=== PATIENT | female | born 1945 | race Hispanic/Latino ===

== ENCOUNTER 2017-03-22 16:45 | Inpatient (IN) | payer MEDICARE, OTHER ==
--- NOTE | 2017-03-22 17:28 | ED PDOC ---
Arrival/HPI - General Chief Complaint: Lower Extremity Problem/Injury Time Seen by Provider: 03/22/17 17:20 - History of Present Illness Narrative History of Present Illness (Text): 72 y/o F c PMHx DM p/w L calf swelling x 1 day. Patient was in PMD's office, was sent to US which was positive. Denies fever, chills, chest pain. She does report shortness of breath but states she always has it and denies any new shortness of breath. 20 pack year history. Past Medical History - Cardiac Hx Cardiac Disorders: Yes Hx Heart Murmur: Yes Hx Pacemaker: No - Pulmonary Hx Respiratory Disorders: No - Neurological Hx Neurological Disorder: No Hx Paralysis: No - HEENT Hx HEENT Disorder: No - Renal Hx Renal Disorder: No - Endocrine/Metabolic Hx Endocrine Disorders: Yes Hx Diabetes Mellitus Type 2: Yes - Hematological/Oncological Hx Blood Disorders: No Hx Blood Transfusions: No Hx Blood Transfusion Reaction: No - Integumentary Hx Dermatological Disorder: No - Musculoskeletal/Rheumatological Hx Musculoskeletal Disorders: Yes (TEAR L SHOULDER ROTATOR CUFF) Hx Arthritis: Yes Hx Falls: Yes Other/Comment: Left knee - Gastrointestinal Hx Gastrointestinal Disorders: No - Genitourinary/Gynecological Hx Genitourinary Disorders: No - Psychiatric Hx Psychophysiologic Disorder: No Hx Emotional Abuse: No Hx Physical Abuse: No Hx Substance Use: No - Surgical History Hx Cholecystectomy: Yes - Anesthesia Hx Anesthesia Reactions: No Hx Malignant Hyperthermia: No - Suicidal Assessment Feels Threatened In Home Enviroment: No Family/Social History Family/Social History: No Known Family HX Smoking Status: Heavy Smoker > 10 Cigarettes Daily Hx Alcohol Use: No Hx Substance Use: No Allergies/Home Meds Allergies/Adverse Reactions: Allergies No Known Allergies Allergy (Verified 03/22/17 17:02) Home Medications: Home Meds Medication Instructions Recorded Confirmed Aspirin [Aspir 81] 81 mg PO DAILY 04/25/12 03/22/17 Metformin HCl [Metformin] 1,000 mg PO BID 04/25/12 03/22/17 GlipiZIDE [Glucotrol] 10 mg PO BID 03/22/17 03/22/17 Lovastatin [Lovastatin] 40 mg PO QPM 03/22/17 03/22/17 Metoprolol Succinate [Toprol XL] 50 mg PO DAILY 01/24/18 01/24/18 Naproxen [Naproxen] 500 mg PO PRN PRN 03/22/17 03/22/17 Review of Systems - Physician Review All systems were reviewed & negative as marked: Yes - Review of Systems Constitutional: absent: Fevers Cardiovascular: absent: Chest Pain Physical Exam - Physical Exam Narrative Physical Exam (Text): Gen: NAD Head: NC/AT Eyes: PERRL ENT: MMM Neck: Supple Chest: Nontender CV: Tachycardic. Lungs: CTA b/l Abd: Soft, NT Back: No midline tenderness Extremities: L calf swollen Neuro: Alert, no focal deficit Vital Signs Temp Pulse Resp BP Pulse Ox 03/22/17 17:03 98.0 F 126 H 19 118/68 94 L Medical Decision Making ED Course and Treatment: Positive outpatient US for L DVT. Start anticoagulation. 03/22/17 18:[address] Flores accepts patient to his service. - Lab Interpretations Lab Results: 03/22/17 17:13 03/22/17 17:13 Lab Results 03/22/17 17:13: Sodium 136, Potassium 4.6, Chloride 101, Carbon Dioxide 23, Anion Gap 16, BUN 15, Creatinine 0.8, Est GFR ( Amer) > 60, Est GFR (Non- Af Amer) > 60, Random Glucose 228 H, Calcium 10.1, Total Bilirubin 0.8, AST 28, ALT 29, Alkaline Phosphatase 91, Total Protein 7.2, Albumin 3.9, Globulin 3.4, Albumin/Globulin Ratio 1.2 03/22/17 17:13: PT 12.2, INR 1.07, APTT 25.9 03/22/17 17:13: WBC 14.9 H D, RBC 4.50, Hgb 14.2, Hct 42.4, MCV 94.2, MCH 31.6, MCHC 33.5, RDW 12.8, Plt Count 367, MPV 10.7, Gran % 83.3 H, Lymph % (Auto) 10.4 L, [place] % (Auto) 4.6, Eos % (Auto) 1.4 L, Baso % (Auto) 0.3, Gran # 12.41 H , Lymph # 1.6, [place] # 0.7 H, Eos # 0.2, Baso # 0.04 - RAD Interpretation Radiology Orders: 03/22/17 17:28 CHEST PORTABLE [RAD] Stat - Medication Orders Current Medication Orders: Heparin Sodium/Sodium Chloride (Heparin 36725 Units/250ml 1/2 Normal Saline) 25 ,000 units in 250 mls @ 16.848 mls/hr IV .[id number] PRN; Protocol; 18 UNITS/KG/HR PRN Reason: ADJUST RATE PER PROTOCOL Discontinued Medications Heparin Sodium (Porcine) (Heparin) 7,500 units 80 units/kg (7500 units) IV ONCE ONE PRN Reason: Protocol Stop: 03/22/17 18:35 Disposition/Present on Arrival - Present on Arrival Any Indicators Present on Arrival: No History of DVT/PE: No History of Uncontrolled Diabetes: No Urinary Catheter: No History of Decub. Ulcer: No History Surgical Site Infection Following: None - Disposition Have Diagnosis and Disposition been Completed?: Yes Diagnosis: DVT (deep venous thrombosis) Disposition: HOSPITALIZED Disposition Time: 18:10 Patient Plan: Admission Condition: FAIR Forms: TLabs (Ivorian)
[2017-03-22 17:47] LABS: BASO # 0.04 K/mm3 (0.0-2.0); BASO % 0.3 % (0.0-3.0); EOS # 0.2 (0.0-0.7); EOS % 1.4 % (1.5-5.0); GRAN # 12.41 (1.4-6.5); GRAN % 83.3 % (50.0-68.0); HEMOGLOBIN 14.2 g/dL (12.0-16.0); LYMPH # 1.6 (1.2-3.4); LYMPH % 10.4 % (22.0-35.0); MEAN CELL VOLUME 94.2 fl (80.0-105.0); MEAN CORPUSCULAR HEMOGLOBIN 31.6 pg (25.0-35.0); MEAN CORPUSCULAR HGB CONC 33.5 g/dl (31.0-37.0); MEAN PLATELET VOLUME 10.7 fl (7.0-11.0); MONO # 0.7 (0.1-0.6); MONO % 4.6 % (1.0-6.0); RBC 4.5 10^6/uL (3.5-6.1); RED CELL DISTRIBUTION WIDTH 12.8 % (11.5-14.5); WHITE BLOOD COUNT 14.9 10^3/ul (4.5-11.0)
[2017-03-22 18:15] LABS: INR 1.07 (0.93-1.08); PARTIAL THROMBOPLASTIN TIME 25.9 Seconds (25.1-36.5); PROTHROMBIN TIME 12.2 SECONDS (9.4-12.5)
[2017-03-22 18:17] LABS: ALB/GLOB RATIO 1.2 (1.1-1.8); ALBUMIN 3.9 g/dL (3.0-4.8); ALT/SGPT 29 U/L (7-56); AST/SGOT 28 U/L (14-36); BLOOD UREA NITROGEN 15 mg/dL (7-21); CALCIUM 10.1 mg/dL (8.4-10.5); GFR AFRICAN-AMERICAN > 60; GFR NON-AFRICAN AMERICAN > 60
[2017-03-22] MEDS: Heparin25000 units/250ml 1/2NS 25,000 UNITS/250 ML BAG IV PRN (19:43)
--- NOTE | 2017-03-22 21:28 | CARD ---
APPROVED REPORT EKG Measurement Heart [id number] <Conclusion> Sinus tachycardia with frequent premature ventricular complexes Low voltage QRS Borderline ECG
[2017-03-22 22:25] VITALS: BMI 37.6
[2017-03-22] MEDS ORDERED: Influenza Vaccine 60 mcg/0.5 mL SYR (4YR UP) IM ONE (22:25)
[2017-03-22] MEDS ORDERED: Pneumococcal 23-Valent Vaccine IM ONE (22:25)
[2017-03-23] MEDS: Insulin Reg-LOW-Coverage SC SCH ×2 (00:01→09:41)
[2017-03-23] MEDS ORDERED: Oxycodone/Acetaminophen 5/325 mg Tab PO ONE (00:10)
--- NOTE | 2017-03-23 08:10 | RAD ---
HISTORY: DVT COMPARISON: Chest x-ray performed 03/16/17 TECHNIQUE: Chest, one view. FINDINGS: Examination markedly limited by habitus. LUNGS: Soft tissue attenuation limits evaluation of the lung bases. Left basilar atelectasis/infiltrate cannot be excluded. Please note that chest x-ray has limited sensitivity for the detection of pulmonary masses. PLEURA: No significant pleural effusion identified. No definite pneumothorax . CARDIOVASCULAR: Cardiomegaly. OSSEOUS STRUCTURES: No acute osseous abnormality identified. VISUALIZED UPPER ABDOMEN: Unremarkable. OTHER FINDINGS: None. IMPRESSION: Soft tissue attenuation/habitus markedly limits evaluation particularly of the lung bases. Left basilar atelectasis or infiltrate cannot be excluded. Cardiomegaly.
[2017-03-23 08:33] LABS: HEMOGLOBIN 13.4 g/dL (12.0-16.0); MEAN CELL VOLUME 95.6 fl (80.0-105.0); MEAN CORPUSCULAR HEMOGLOBIN 30.8 pg (25.0-35.0); MEAN CORPUSCULAR HGB CONC 32.2 g/dl (31.0-37.0); MEAN PLATELET VOLUME 10.5 fl (7.0-11.0); RBC 4.35 10^6/uL (3.5-6.1); RED CELL DISTRIBUTION WIDTH 12.9 % (11.5-14.5); WHITE BLOOD COUNT 10.5 10^3/ul (4.5-11.0)
[2017-03-23 08:45] LABS: ALB/GLOB RATIO 1.1 (1.1-1.8); ALBUMIN 3.6 g/dL (3.0-4.8); ALT/SGPT 29 U/L (7-56); AST/SGOT 20 U/L (14-36); BLOOD UREA NITROGEN 13 mg/dL (7-21); CALCIUM 9.7 mg/dL (8.4-10.5); GFR AFRICAN-AMERICAN > 60; GFR NON-AFRICAN AMERICAN > 60
[2017-03-23] MEDS ORDERED: Metoprolol Succinate 50 mg XL Tab PO SCH (10:00)
[2017-03-23] MEDS ORDERED: INSULIN LISPRO 50 UNIT SQ SCH (10:45)
[2017-03-23] MEDS ORDERED: Barium Sulfate Susp 2.1% w/v, 2.0% w/w 450 mL Bottle PO ONE (10:57)
[2017-03-23] MEDS: Sodium Chloride 0.45% 1,000 ML IV SCH ×2 (11:58→21:19)
[2017-03-23] MEDS: Insulin Reg-HIGH-Coverage SC SCH ×3 (11:58→22:00)
--- NOTE | 2017-03-23 13:00 | CP.PCM.CON ---
History of Present Illness - History of Present Illness History of Present Illness: 72 y/o F with PMH of HTN, HLD, and DM presents to the hospital after developing left lower extremity pain and swelling for 3 days. Patient states she went to see her PMD for her symptoms and she received a lower extremity ultrasound which demonstrated a left ileofemoral DVT. Patient was then advised to come to the ED. Patient states she has been mainly been bed bound over the last several weeks due to severe knee pain. Patient was scheduled for knee replacement surgery in the beginning of March, which has since been cancelled. Patient did not take any medication for her symptoms at home. There is no radiation of pain. Denies chest pain, shortness of breath, nausea, vomiting, diarrhea, headache, fever, chills, weakness, palpitations. PMH: HTN, HLD, DM Surgical Hx: Cholecystectomy Family Hx: Noncontributory Social Hx: 1 ppd x 50 years. Social alcohol use. Denies illicit drug use. Allergies: NKDA Medications: Reviewed, as per MAR Review of Systems - Review of Systems Review of Systems: 12 point ROS as per HPI, otherwise negative. Past Patient History - Past Social History Smoking Status: Current Some Days Smoker - CARDIAC Hx Cardiac Disorders: Yes (CAD,HEAR MURMUR) Hx Heart Murmur: Yes Hx Pacemaker: No Hx Peripheral Vascular Disease: Yes (DVT LEFT LEG 03-22-17) - PULMONARY Hx Respiratory Disorders: Yes (SMOKES 1/2 PPD X 40 YRS) - NEUROLOGICAL Hx Neurological Disorder: No - HEENT Hx HEENT Problems: No - RENAL Hx Chronic Kidney Disease: No - ENDOCRINE/METABOLIC Hx Endocrine Disorders: Yes Hx Diabetes Mellitus Type 2: Yes - HEMATOLOGICAL/ONCOLOGICAL Hx Blood Disorders: No - INTEGUMENTARY Hx Dermatological Problems: Yes Other/Comment: DVT LEFT LEG 03-22-17 - MUSCULOSKELETAL/RHEUMATOLOGICAL Hx Musculoskeletal Disorders: Yes ([place] RIGHT ROTATOR CUFF) Hx Falls: Yes - GASTROINTESTINAL Hx Gastrointestinal Disorders: No - GENITOURINARY/GYNECOLOGICAL Hx Genitourinary Disorders: No - PSYCHIATRIC Hx Psychophysiologic Disorder: No Hx Emotional Abuse: No Hx Physical Abuse: No - SURGICAL HISTORY Hx Surgeries: Yes Hx Cholecystectomy: Yes - ANESTHESIA Hx Anesthesia Reactions: No Hx Malignant Hyperthermia: No Meds Allergies/Adverse Reactions: Allergies Allergy/AdvReac Type Severity Reaction Status Date / Time No Known Allergies Allergy Verified 03/22/17 19:19 - Medications Medications: Current Medications Aspirin (Ecotrin) 81 mg PO DAILY [facility] Last Admin: 03/23/17 09:40 Dose: 81 mg Atorvastatin Calcium (Lipitor) 40 mg PO DIN [facility] Heparin Sodium/Sodium Chloride (Heparin 06037 Units/250ml 1/2 Normal Saline) 25 ,000 units in 250 mls @ 16.848 mls/hr IV .[id number] PRN; Protocol; 18 UNITS/KG/HR PRN Reason: ADJUST RATE PER PROTOCOL Last Admin: 03/22/17 19:43 Dose: 18 units/kg/hr, 16.848 mls/hr Sodium Chloride (Sodium Chloride 0.45%) 1,000 mls @ 80 mls/hr IV .[id number] [facility] Stop: 03/24/17 12:00 Last Admin: 03/23/17 11:58 Dose: 80 mls/hr Insulin Human Regular (Humulin R High) 0 units SC ACHS [facility] PRN Reason: Protocol Last Admin: 03/23/17 11:58 Dose: 4 units Non-Formulary Medication (Humalog Kwikpen U-100) 40 units SQ ACD [place] Non-Formulary Medication (Insulin Lispro [Humalog Kwikpen U-100]) 50 units SQ ACB [facility] Zolpidem Tartrate (Ambien) 5 mg PO HS PRN; Protocol PRN Reason: Sleep Physical Exam - Constitutional Appears: Non-toxic, No Acute Distress - Head Exam Head Exam: ATRAUMATIC, NORMAL INSPECTION, NORMOCEPHALIC - Eye Exam Eye Exam: EOMI, Normal appearance - ENT Exam ENT Exam: Mucous Membranes Moist, Normal Exam - Neck Exam Neck exam: Positive for: Normal Inspection. Negative for: Lymphadenopathy - Respiratory Exam Respiratory Exam: Clear to Auscultation Bilateral, NORMAL BREATHING PATTERN. absent: Rales, Rhonchi, Wheezes - Cardiovascular Exam Cardiovascular Exam: RRR, +S1, +S2 - GI/Abdominal Exam GI & Abdominal Exam: Normal Bowel Sounds, Soft. absent: Tenderness - Extremities Exam Extremities exam: Positive for: pedal edema (Left lower extremity +1 edema to the knee). Negative for: calf tenderness - Neurological Exam Neurological exam: Alert, CN II-XII Intact, Oriented x3 - Psychiatric Exam Psychiatric exam: Normal Affect, Normal Mood - Skin Skin Exam: Dry, Erythema (Left lower extremity ), Intact, Warm Results - Vital Signs Recent Vital Signs: Last Vital Signs Temp 97.8 F 03/23/17 08:23 Pulse 96 H 03/23/17 08:23 Resp 20 03/23/17 08:23 BP 135/75 03/23/17 08:23 Pulse Ox 99 03/23/17 08:23 - Labs Result Diagrams: 03/23/17 08:00 03/23/17 08:00 Labs: Laboratory Results - last 24 hr 03/23/17 03/23/17 03/23/17 01:45 08:00 08:00 WBC 10.5 D RBC 4.35 Hgb 13.4 Hct 41.6 MCV 95.6 MCH 30.8 MCHC 32.2 RDW 12.9 Plt Count 339 MPV 10.5 APTT 79.0 H 66.4 H Sodium Potassium Chloride Carbon Dioxide Anion Gap BUN Creatinine Est GFR ( Amer) Est GFR (Non-Af Amer) POC Glucose (mg/dL) Random Glucose Calcium Total Bilirubin AST ALT Alkaline Phosphatase Total Protein Albumin Globulin Albumin/Globulin Ratio 03/23/17 03/23/17 03/23/17 08:00 08:17 11:35 WBC RBC Hgb Hct MCV MCH MCHC RDW Plt Count MPV APTT Sodium 138 Potassium 4.0 Chloride 102 Carbon Dioxide 26 Anion Gap 14 BUN 13 Creatinine 0.8 Est GFR ( Amer) > 60 Est GFR (Non-Af Amer) > 60 POC Glucose (mg/dL) 153 H 206 H Random Glucose 160 H Calcium 9.7 Total Bilirubin 0.8 AST 20 ALT 29 Alkaline Phosphatase 89 Total Protein 7.0 Albumin 3.6 Globulin 3.3 Albumin/Globulin Ratio 1.1 Assessment & Plan - Assessment and Plan (Free Text) Plan: 72 y/o F with PMH of HTN, HLD, and DM presents with left ileofemoral DVT. Patient is currently on heparin drip for her DVT. Patient will remain on heparin for the next 24 hours before bridging to oral anticoagulation due to the proximity of the DVT. Patient will have hypercoaguable workup done in the mean time, although DVT is likely secondary to immobility of the patient. Patient will have CTA of the chest/abdomen/pelvis to further evaluate extent of the clot. Patient is also currently being followed by interventional radiology. Will continue with current medical regimen. Plan discussed with Dr. Taylor. Cindi, PGY-2
--- NOTE | 2017-03-23 13:23 | CON ---
DATE: 03/23/2017 TIME SEEN: 11:00 a.m. CHIEF COMPLAINT/HISTORY OF PRESENT ILLNESS: This is a 72-year-old female who was admitted yesterday with an extensive left iliofemoral DVT. She states that her leg swelling and pain began approximately 3 days prior to admission. She denies any precipitating events. She has no history of venous thromboembolic events. She has no family history for venous thrombosis. She describes some shortness of breath, but has a significant smoking history and COPD. She has no history of malignancy. She denies any fever, sweats, or chills. PAST MEDICAL HISTORY: Significant for smoking. She continues to smoke. She had a screening lung CT in January which was unremarkable. As mentioned previously, she has no history of malignancy. PHYSICAL EXAMINATION: EXTREMITIES: Her left thigh and calf are significantly swollen. She is somewhat tender to touch. Her toes are well perfused. DIAGNOSTIC DATA: Her Duplex ultrasound demonstrates a left acute iliofemoral DVT. The thrombus extends into the left iliac vein and IVC is not visualized. IMPRESSION AND PLAN: I spoke with Dr. Flores. We will obtain a CTA of the pulmonary arteries followed by a CT scan of the abdomen and pelvis to evaluate the venous structures and rule out malignancy. Initially, she will be treated with anticoagulation and compression stockings. She should sit in the chair and ambulate as much as possible. If her swelling and discomfort does not improve with conservative therapy, she will be reevaluated in the next 1 to 2 weeks for catheter-directed thrombolysis. João Moore MD MTDD
[2017-03-23] MEDS: Heparin25000 units/250ml 1/2NS 25,000 UNITS/250 ML BAG IV PRN (13:31)
--- NOTE | 2017-03-23 15:48 | CT ---
PROCEDURE: CT Angiography Chest, Abdomen and Pelvis with and without intravenous contrast HISTORY: DVT. Eval IVC iliac vein. ro malignancy COMPARISON: None. TECHNIQUE: Contiguous axial images of the chest, abdomen and pelvis were obtained in the phase of aortic enhancement. A noncontrast enhanced CT of the chest was also obtained to evaluate for possible intramural thrombus. Coronal and sagittal reformats were generated. IV dose administered: 150 mL Omnipaque 350 Radiation dose: Total exam DLP = 1544.8 by mGy-cm. This CT exam was performed using one or more of the following dose reduction techniques: Automated exposure control, adjustment of the mA and/or kV according to patient size, and/or use of iterative reconstruction technique. FINDINGS: CT ANGIOGRAPHY OF THE CHEST WITH & WITHOUT CONTRAST: PULMONARY ARTERIES:: There a large occlusive filling defect in the distal right main pulmonary artery and filling defects in the upper, middle and lower lobe pulmonary artery branches. There are no central filling defects in the main and left pulmonary artery or branches. There are small eccentric filling defects in at least two left lower lobe distal branches. AORTA (CHEST AND ABDOMEN): The thoracic and abdominal aorta are unremarkable, without aneurysm, dissection or rupture. No intramural thrombus identified in the thoracic aorta on the non-contrast ct of the chest. There is mild dilatation of the ascending aorta which measures 4.0 x 3.7 cm. There are atherosclerotic aortoiliac calcifications. The celiac axis, superior mesenteric artery, inferior mesenteric artery and the renal arteries are widely patent. The pelvic arteries are unremarkable. LUNGS: The lungs are well inflated. There is a 2 mm calcified nodule in the peripheral anterior segment of the right upper lobe. There is mild diffuse centrilobular emphysema. There is no focal consolidation, mass or suspicious nodule. The airways are patent. MEDIASTINUM: The heart is normal in size. No pericardial effusion. No pathologic mediastinal or hilar lymphadenopathy. PLEURA: No pleural effusion or pneumothorax. BONES: Multilevel degenerative changes in the lower thoracic diffuse bone demineralization. OTHER FINDINGS: None. CT ANGIOGRAPHY OF THE ABDOMEN AND PELVIS WITH CONTRAST: LIVER: Normal in size. No gross lesion or ductal dilatation. GALLBLADDER AND BILE DUCTS: Surgically absent. PANCREAS: Mild diffuse atrophy. No gross lesion or ductal dilatation. SPLEEN: Normal in size and appearance. ADRENALS: There is a 3.3 cm adenoma in the right adrenal gland. The left adrenal gland is normal. KIDNEYS AND URETERS: Normal in size with homogeneous enhancement. The right kidney is malrotated. There is a simple cortical cyst in the right kidney. No hydronephrosis. No solid mass. STOMACH AND BOWEL: The small bowel loops are normal in caliber. No bowel dilatation or obstruction. There is colonic diverticulosis without CT evidence for acute diverticulitis APPENDIX: Normal appendix. PERITONEUM: No free fluid. No free air. LYMPH NODES: No enlarged lymph nodes. BLADDER: Normal in appearance. REPRODUCTIVE: The uterus is normal in size . There is a 2.9 cm simple cyst in the right ovary BONES: There are advanced multilevel degenerative changes. Diffuse bone demineralization. No acute fracture OTHER FINDINGS: There is subcutaneous fat stranding and abnormal soft tissue in the left gluteal region which may represent subcutaneous edema or cellulitis. There is an occlusive thrombus and distension of the left external right iliac vein. IMPRESSION: 1. Acute pulmonary embolism involving the distal right pulmonary artery, upper and middle and lower lobe branches. 2. Chronic pulmonary embolism in at least two distal branches of the left lower lobe pulmonary artery. 3. 3.3 cm right adrenal adenoma. 4. Colonic diverticulosis without CT evidence for acute diverticulitis. 5. Occlusive thrombus and distention of the left external right iliac vein. 6. 2.9 cm simple cyst in the right ovary. Given postmenopausal status, follow-up pelvic ultrasound is recommended to assess stability. Important findings were discussed with nurse Jenifer Gonzalez on 03/23/2017 at 3:30 p.m.
[2017-03-23] MEDS ORDERED: INSULIN LISPRO SQ SCH ×2 (16:30)
--- NOTE | 2017-03-23 23:18 | HP ---
HISTORY OF PRESENT ILLNESS: This is a 72-year-old female who has come in to the hospital because of left leg swelling. The patient was seen by Dr. Almanzar, her primary care doctor and was sent to the ER for further evaluation. She says the swelling developed about three days ago. She had an ultrasound in the emergency room and was found to have a left iliofemoral DVT. She was admitted to the hospital for further evaluation. She says that she has been having left-sided knee pain and was scheduled for procedure by her orthopedic doctor. The patient says that she has no shortness of breath. She has no chest pain. No weakness of the arms or the legs. No abdominal pain. No back pain. No dysuria, frequency, or nocturia. She denies any recent trips or long travel. The patient denies using contraceptives. PAST MEDICAL HISTORY: Dyslipidemia, diabetes type 2, and hypertension. PAST SURGICAL HISTORY: She had a cholecystectomy. SOCIAL HISTORY: She does have an extensive smoking history. She has been smoking for about 50 years and smokes about a pack a day. She drinks socially. She denies drug use. REVIEW OF SYSTEMS: All other review of symptoms are within normal limits except as mentioned. ALLERGIES: NO KNOWN DRUG ALLERGIES. HOME MEDICATIONS: Has been reviewed on the [facility]. PHYSICAL EXAMINATION: VITAL SIGNS: Temperature is 97.8, pulse of 96, blood pressure 135/75, respirations 20, and O2 saturation is 99%. Height is 5 feet 2 inches, weight is 260 pounds, and BMI of 37.7. GENERAL: The patient lying in bed, uncomfortable, and in no acute distress. HEENT: Atraumatic and normocephalic. Anicteric sclerae. Moist mucosa. [place] conjunctivae. No oral lesions. NECK: No JVD, anterior and posterior adenopathy, thyromegaly, or bruits. CARDIOVASCULAR: S1 and S2 regular. No murmur, rubs, or gallop. LUNGS: Clear to auscultation bilaterally. No wheezes, rales, or rhonchi. ABDOMEN: Bowel sounds are positive. Soft, nontender and nondistended. No hepatosplenomegaly. No rebound and no guarding EXTREMITIES: No cyanosis, clubbing, or edema. Left leg has 1+ edema that goes up to the knees. NEUROLOGIC: No facial asymmetry. Tongue is midline. No uvula deviation. Power is 5/5 upper extremity and lower extremity. Sensation intact in upper extremity and lower extremity. PSYCHIATRIC: She is awake, alert and oriented x3. No anxiety or depression. She has normal affect. GENITOURINARY: No CVA tenderness. VASCULAR: 2+ pulses in the carotid pulses and pedal pulses. SKIN: No erythema or nodules. SPINE: Shows normal curvature. LABORATORY DATA: White count 14.9, hemoglobin is 14.2, and platelet count is 367,000. The patient's INR is 1.07. Chemistries show sodium is 136, potassium is 4.6, creatinine is 0.8, alkaline phosphatase is 91, calcium is 10.1. DIAGNOSTIC DATA: Chest x-ray done shows soft tissue attenuation, left basal atelectasis and infiltrate. EKG shows sinus tachycardia with frequent PVCs, low-voltage QRS. A CT of the chest done, abdomen and pelvis, the preliminary result looks like the patient has a PE on chest CT. ASSESSMENT: 1. Left iliofemoral deep vein thrombosis. 2. Diabetes type 2. 3. Obesity with a body mass index of 37. 4. Hypertension. 5. Dyslipidemia. 6. Smoking. PLAN: The patient is admitted to the hospital with left leg swelling. She has edema that goes to her knees. She has an ultrasound that shows DVT. A CT shows pulmonary embolism. The patient was seen by Dr. João Moore. I did speak with him. She is also going to be seen by Dr. Taylor. She will need further evaluation. The patient may need intervention for her DVT because it is so extensive. I have placed the patient on heparin. She is going to get stockings. We will see if she improves, otherwise she may need TPA. The patient is then going to be placed on lisinopril for her hypertension. She is on Lipitor for dyslipidemia. The patient is going to be on Ambien for her sleep. She is going to continue with heparin. I will hold her metformin because of the contrast that she received with the CT. We will continue to follow closely. Rosales Flores MD
[2017-03-24 03:09] LABS: URINE BILIRUBIN NEGATIVE (NEGATIVE); URINE BLOOD NEGATIVE (NEGATIVE); URINE GLUCOSE (UA) NEGATIVE (NEGATIVE); URINE LEUKOCYTE ESTERASE SMALL Leu/uL (NEGATIVE); URINE NITRATE POSITIVE (NEGATIVE); URINE PROTEIN NEGATIVE mg/dL (<30 mg/dL); URINE UROBILINOGEN 0.2 E.U./dL (<1 E.U./dL)
[2017-03-24 03:10] LABS: URINE APPEARANCE CLEAR (CLEAR); URINE COLOR YELLOW (YELLOW)
[2017-03-24 03:17] LABS: URINE BACTERIA MANY (NEG); URINE EPITHELIAL CELLS 0 - 2 /hpf (0-5); URINE RBC 0 - 2 /hpf (0-2)
[2017-03-24 07:25] LABS: BASO # 0.06 K/mm3 (0.0-2.0); BASO % 0.7 % (0.0-3.0); EOS # 0.4 (0.0-0.7); EOS % 4.7 % (1.5-5.0); GRAN # 5.21 (1.4-6.5); GRAN % 57.1 % (50.0-68.0); HEMOGLOBIN 12.5 g/dL (12.0-16.0); LYMPH # 2.6 (1.2-3.4); MEAN CELL VOLUME 95.6 fl (80.0-105.0); MEAN CORPUSCULAR HEMOGLOBIN 30.5 pg (25.0-35.0); MEAN CORPUSCULAR HGB CONC 31.9 g/dl (31.0-37.0); MEAN PLATELET VOLUME 10.8 fl (7.0-11.0); MONO # 0.8 (0.1-0.6); MONO % 8.5 % (1.0-6.0); RBC 4.1 10^6/uL (3.5-6.1); RED CELL DISTRIBUTION WIDTH 12.8 % (11.5-14.5); WHITE BLOOD COUNT 9.1 10^3/ul (4.5-11.0)
[2017-03-24] MEDS ORDERED: INSULIN LISPRO 50 UNIT SQ SCH (07:30)
--- NOTE | 2017-03-24 07:48 | PN ---
DATE: 03/24/2017 SUBJECTIVE: The patient has no complaints of any chest pain. No shortness of breath. She has no headaches. PHYSICAL EXAMINATION: VITAL SIGNS: Temperature is 98.7, pulse of 84, blood pressure is 116/60, and respirations are 18. GENERAL: The patient is lying in bed, flat, comfortable. HEENT: No oral lesion. Anicteric sclerae. Moist mucosa. NECK: No JVD, adenopathy, or thyromegaly. CARDIOVASCULAR: S1 and S2, regular. No murmurs, rubs, or gallops. LUNGS: Clear to auscultation bilaterally. No wheeze, rales, or rhonchi. ABDOMEN: Bowel sounds are positive, soft, nontender and nondistended. EXTREMITIES: No cyanosis, clubbing or edema. DIAGNOSTIC DATA: CT of the chest, abdomen and pelvis. She has acute pulmonary embolism with distal right pulmonary artery upper and middle lobe branches, there is a 3.3 cm right adrenal adenoma. There is a occlusive thrombus and distention of the left external right iliac vein. A 2.9 cm cyst in the right ovary. LABORATORY DATA: White count is 10.5, hemoglobin is 13.4 and creatinine is 0.8. ASSESSMENT: 1. Pulmonary embolism. 2. Left iliofemoral deep vein thrombosis. 3. Right adrenal adenoma 3.3 cm. 4. Occlusive thrombus in the left external right iliac vein. 5. Diabetes type 2. 6. Obesity with a body mass index of 37. 7. Hypertension. 8. Dyslipidemia. 9. Smoking. PLAN: The patient is currently on anticoagulation. The patient is receiving aspirin. She is on Lipitor for dyslipidemia. The patient is receiving Tylenol. She is on Zestril for her hypertension. She is receiving IV fluids. She is going to get physical therapy. She will need to continue anticoagulation. Will need to get physical therapy. I will see if she is able to go to Transitional Care Unit. We will speak to Dr. João Moore regarding TPA for this DVT and in consultation with the patient's primary doctor, Dr. Almanzar and Dr. João Moore. We will wait until to see if she makes an improvement with conservative management. I did speak to Dr. João Moore regarding the case. Rosales Flores MD [facility] # [id number]
[2017-03-24 08:05] LABS: ALB/GLOB RATIO 1.2 (1.1-1.8); ALBUMIN 3.3 g/dL (3.0-4.8); ALT/SGPT 21 U/L (7-56); AST/SGOT 17 U/L (14-36); BLOOD UREA NITROGEN 10 mg/dL (7-21); CALCIUM 9.7 mg/dL (8.4-10.5); GFR AFRICAN-AMERICAN > 60; GFR NON-AFRICAN AMERICAN > 60
[2017-03-24] MEDS: Insulin Reg-HIGH-Coverage SC SCH ×3 (09:51→17:09)
[2017-03-24] MEDS: Heparin25000 units/250ml 1/2NS 25,000 UNITS/250 ML BAG IV PRN (10:41)
--- NOTE | 2017-03-24 13:15 | CP.PCM.PN ---
Subjective - Date & Time of Evaluation Date of Evaluation: 03/24/17 Time of Evaluation: 13:09 - Subjective Subjective: Patient seen and examined at bedside. Patient states she has left leg discomfort and pain. She is now wearing a stocking on her left leg. Denies chest pain, shortness of breath, nausea, vomiting, diarrhea, fever, headache. Objective - Vital Signs/Intake and Output Vital Signs (last 24 hours): Temp Pulse Resp BP Pulse Ox 98.5 F 84 20 123/72 95 03/24/17 06:00 03/24/17 09:52 03/24/17 06:00 03/24/17 09:52 03/24/17 06:00 Intake and Output: 03/24/17 03/24/17 06:59 18:59 Intake Total 1920 Output Total 900 Balance 1020 - Medications Medications: Current Medications Acetaminophen (Tylenol 325mg Tab) 650 mg PO Q4H PRN PRN Reason: Pain, moderate (4-7) Last Admin: 03/24/17 06:27 Dose: 650 mg Aspirin (Ecotrin) 81 mg PO DAILY [facility] Last Admin: 03/24/17 09:50 Dose: 81 mg Atorvastatin Calcium (Lipitor) 40 mg PO DIN [facility] Last Admin: 03/23/17 17:15 Dose: 40 mg Heparin Sodium/Sodium Chloride (Heparin 04973 Units/250ml 1/2 Normal Saline) 25 ,000 units in 250 mls @ 16.848 mls/hr IV .[id number] PRN; Protocol; 18 UNITS/KG/HR PRN Reason: ADJUST RATE PER PROTOCOL Last Admin: 03/24/17 10:41 Dose: 18 units/kg/hr, 16.848 mls/hr Insulin Human Regular (Humulin R High) 0 units SC ACHS [facility] PRN Reason: Protocol Last Admin: 03/24/17 11:36 Dose: 4 units Lisinopril (Zestril) 2.5 mg PO DAILY [facility] Last Admin: 03/24/17 09:52 Dose: 2.5 mg Non-Formulary Medication (Humalog Kwikpen U-100) 40 units SQ ACD [facility] Last Admin: 03/23/17 17:14 Dose: Not Given Non-Formulary Medication (Insulin Lispro [Humalog Kwikpen U-100]) 50 units SQ ACB [facility] Zolpidem Tartrate (Ambien) 5 mg PO HS PRN; Protocol PRN Reason: Sleep Last Admin: 03/24/17 00:01 Dose: 5 mg - Labs Labs: 03/24/17 06:00 03/24/17 07:20 PT 12.2 SECONDS (9.4-12.5) 03/22/17 17:13 INR 1.07 (0.93-1.08) 03/22/17 17:13 APTT 53.8 Seconds (25.1-36.5) H 03/24/17 06:00 - Constitutional Appears: Non-toxic, No Acute Distress - Head Exam Head Exam: ATRAUMATIC, NORMAL INSPECTION, NORMOCEPHALIC - ENT Exam ENT Exam: Mucous Membranes Moist - Respiratory Exam Respiratory Exam: Clear to Ausculation Bilateral, NORMAL BREATHING PATTERN. absent: Rales, Rhonchi, Wheezes - Cardiovascular Exam Cardiovascular Exam: RRR, +S1, +S2 - GI/Abdominal Exam GI & Abdominal Exam: Soft, Normal Bowel Sounds. absent: Tenderness - Extremities Exam Extremities Exam: Calf Tenderness, Pedal Edema, Tenderness Additional comments: Left lower extremity erythematous and swollen - Neurological Exam Neurological Exam: Alert, Awake, Oriented x3 - Psychiatric Exam Psychiatric exam: Normal Affect, Normal Mood - Skin Skin Exam: Erythema, Intact, Warm Assessment and Plan - Assessment and Plan (Free Text) Plan: 72 y/o F with PMH of HTN, HLD, and DM presents with left ileofemoral DVT and right sided PE. Patient received CTA of chest/abdomen/pelvis which showed right pulmonary artery thrombus with iliac vein occlusive thrombus. Patient is currently on heparin drip for her DVT. Patient will remain on heparin drip due to the size of the clot. Patient is also being followed by interventional radiology, will await recs for possible tPA. Hypercoaguable workup pending. DVT likely secondary to immobility. Plan discussed with Dr. Taylor. Cindi, PGY-2
[2017-03-24] MEDS: Sodium Chloride 0.45% 1,000 ML IV SCH ×2 (17:10→21:37)
[2017-03-25] MEDS: Heparin25000 units/250ml 1/2NS 25,000 UNITS/250 ML BAG IV PRN (05:41)
[2017-03-25 07:29] LABS: ALBUMIN 3.3 g/dL (3.0-4.8); ALT/SGPT 26 U/L (7-56); AST/SGOT 23 U/L (14-36); BLOOD UREA NITROGEN 8 mg/dL (7-21); CALCIUM 9.2 mg/dL (8.4-10.5); GFR AFRICAN-AMERICAN > 60; GFR NON-AFRICAN AMERICAN > 60
[2017-03-25 08:19] LABS: HEMOGLOBIN 12.3 g/dL (12.0-16.0); MEAN CORPUSCULAR HEMOGLOBIN 30.7 pg (25.0-35.0); MEAN CORPUSCULAR HGB CONC 32.6 g/dl (31.0-37.0); MEAN PLATELET VOLUME 10.9 fl (7.0-11.0); RBC 4.01 10^6/uL (3.5-6.1); RED CELL DISTRIBUTION WIDTH 12.6 % (11.5-14.5); WHITE BLOOD COUNT 8.7 10^3/ul (4.5-11.0)
[2017-03-25 08:25] VITALS: BP 158/77; PULSE 77; RESP 18; TEMP 98; O2SAT 95
[2017-03-25] MEDS: Insulin Reg-HIGH-Coverage SC SCH ×2 (08:37→12:39)
--- NOTE | 2017-03-25 20:45 | PN ---
DATE: 03/25/2017 This is [facility] visit on the medical floor. For Dr. Taylor. SUBJECTIVE: The patient is a 72-year-old female, seen lying, awake in bed, admitted for evaluation of DVT and extremity ultrasound on 03/22 showing extensive left iliofemoral DVT, the superior extent of the thrombus is not to find. She then had a CT scan of the chest, abdomen and pelvis on 03/23, which showed an acute pulmonary embolism involving the distal right pulmonary artery upper, middle, lower lobe branches, chronic pulmonary embolism at least two branches, diverticulosis, occlusive thrombus left external right iliac vein. With these findings, necessitating the patient to be anticoagulated on heparin drip which continuous. She also had a consult and evaluation with Dr. Jooã Moore with the patient now wearing a compression stocking on her left lower extremity. There is also consideration for direct thrombolysis should she not improve. The patient is now for transfer to TCU she reports. She was to have had knee replacement surgery with Dr. Stewart, orthopedic surgeon; however, this is now postponed indefinitely due to acute findings as above. She is otherwise in no acute distress. OBJECTIVE/PHYSICAL EXAMINATION: VITAL SIGNS: Temperature 98, pulse 77, respirations 18, blood pressure 158/77, pulse oximetry 95%. Her weight 206 pounds, height 5 feet 2 inches tall. HEENT: Unremarkable. NECK: Supple. HEART: Regular rate. LUNGS: Clear. ABDOMEN: Obese, soft, nontender. EXTREMITIES: The patient's extremities with a compression stocking on the lower extremity on the left. NEUROLOGICALLY: She is awake and alert. LABORATORY DATA: The patient's labs were done. White blood cell count of 8.7, hemoglobin of 12.3, hematocrit 37.7, platelet count of 321,000 with a chem metabolic panel within normal limits of nonfasting glucose of 205, PTT is 59.4. She is on heparin drip. Urinalysis is negative. ASSESSMENT: For this patient is that of acute pulmonary embolism, iliofemoral deep venous thrombosis, hypercoagulable state ?, right adrenal adenoma, diabetes mellitus, morbid obesity, hypertension, smoking, dyslipidemia, degenerative disk disease of the knees. PLAN: For this patient after conversation with Dr. Taylor is to continue her heparin, transfer to TCU for the patient to be sitting as per Dr. João Moore's recommendations as much as possible with consideration for further treatment including catheter-directed thrombolysis should be indicated in the future. Prognosis for this patient is guarded. Frankie Shannon MD
--- NOTE | 2017-03-26 06:39 | DS ---
HISTORY OF PRESENT ILLNESS: The patient is a 72-year-old, who came to the emergency room on 03/22 for leg Doppler and she was found to have extensive left iliofemoral DVT and superior extent of the thrombus was not identified, so the patient was referred to emergency room for admission and for anticoagulation. She has been on heparin, doing well. PHYSICAL EXAMINATION: On examination today, GENERAL: She is awake, alert, oriented, and able to communicate. VITAL SIGNS: She is afebrile, pulse 77, respirations 18, and blood pressure 158/77. LUNGS: Bilateral good airflow. No rhonchi or crackles. HEART: S1, S2, audible. ABDOMEN: Soft, obese, nontender, no rebound, no guarding. HEAD AND NECK: Nonicteric sclerae. [place] conjunctivae. EXTREMITIES: Bilateral legs +2 edema, right more than the left. LABORATORY DATA: Reveals WBC of 8.7, hemoglobin 12.3, hematocrit 37, platelets of 321. PTT is 59.4. Chemistry; sodium 138, potassium 4.0, chloride 105, CO2 of 28, BUN 8, creatinine 0.7, and blood sugar of 227. ASSESSMENT: 1. Left leg iliofemoral deep venous thrombosis. 2. Morbid obesity. 3. Non-insulin dependent diabetes. 4. Hypertension. 5. Hyperlipidemia. 6. Deconditioning and difficulty walking. 7. Pulmonary embolism. PLAN: The patient is being transferred to TCU. We will maintain her on heparin and we will continue her on statin, aspirin, started on physical therapy. Dr. João Moore's input noted and appreciated. We will start her on Coumadin and we will follow up her PT/INR. The patient will be transferred to TCU today. Saad Novak MD
== END 2017-03-25 16:37 | DRG 299 ==
LOC: ED 16:45 → ERH 18:47 → 3RNO 22:43
PROVIDERS: ADMIT Internal Medicine Nephrology; ATTEND Internal Medicine Nephrology
DX: I82.422 Acute embolism and thrombosis of left iliac vein (principal); I26.99 Other pulmonary embolism without acute cor pulmonale; D68.59 Other primary thrombophilia; E66.01 Morbid (severe) obesity due to excess calories; J44.9 Chronic obstructive pulmonary disease, unspecified; I27.82 Chronic pulmonary embolism; D35.01 Benign neoplasm of right adrenal gland; E11.51 Type 2 diabetes mellitus with diabetic peripheral angiopathy without gangrene; E78.5 Hyperlipidemia, unspecified; I10 Essential (primary) hypertension; I25.10 Atherosclerotic heart disease of native coronary artery without angina pectoris; K57.90 Diverticulosis of intestine, part unspecified, without perforation or abscess without bleeding; Z68.37 Body mass index [BMI] 37.0-37.9, adult; Z74.01 Bed confinement status; Z79.82 Long term (current) use of aspirin; Z79.84 Long term (current) use of oral hypoglycemic drugs; Z87.891 Personal history of nicotine dependence; Z90.49 Acquired absence of other specified parts of digestive tract

== ENCOUNTER 2017-03-25 16:37 | Inpatient (IN) | payer OTHER ==
[2017-03-25] MEDS: Insulin Reg-HIGH-Coverage SC SCH (22:00)
[2017-03-25] MEDS ORDERED: Pneumococcal 23-Valent Vaccine IM ONE (22:17)
[2017-03-25] MEDS ORDERED: Influenza Vaccine 60 mcg/0.5 mL SYR (4YR UP) IM ONE (22:17)
[2017-03-26] MEDS: Heparin25000 units/250ml 1/2NS 25,000 UNITS/250 ML BAG IV PRN ×2 (01:12→22:01)
[2017-03-26] MEDS: Insulin Reg-HIGH-Coverage SC SCH ×4 (07:46→21:53)
[2017-03-26] MEDS: INSULIN LISPRO 50 UNIT SQ SCH (07:48)
[2017-03-26 12:39] LABS: INR 1.04 (0.93-1.08)
[2017-03-26] MEDS ORDERED: INSULIN LISPRO SQ SCH (16:30)
--- NOTE | 2017-03-27 01:16 | CON ---
DATE: 03/26/2017 This is [facility]'s hospital visit on TCU. For Dr. Taylor CHIEF COMPLAINT: DVT and PE. HISTORY OF PRESENT ILLNESS: The patient is a 72-year-old female admitted to the hospital for left leg swelling, seen by Dr. Billy, primary doctor sent for further evaluation to the Emergency Room with ultrasound shown to have iliofemoral DVT further testing showed that the patient had an associated pulmonary embolism with consideration for hypercoagulable state. She also suffers from diabetes, hypertension, obesity, and is a smoker. She is now admitted to the TCU floor for reconditioning and for continuation of her IV heparin with consideration for catheter-directed thrombolysis by Dr. João Moore should be indicated. The patient reports that her sister gave her an omeprazole tablet for which we recommend that all medicine would be given via the nurses and we will add omeprazole to her medical regimen. ALLERGIES: NO KNOWN ALLERGIES. MEDICATIONS: The patient's medications include IV heparin at this point along with Ambien, Ecotrin, sliding scale insulin protocol, Humalog, lispro, Lipitor, Protonix we will just add today, Zestril, and Tylenol. PAST MEDICAL HISTORY: Significant for diabetes insulin dependent, pulmonary embolism, DVT, hypercoagulable state? right adrenal adenoma, hypertension, smoking, dyslipidemia, and degenerative joint disease of the knees. FAMILY HISTORY AND SOCIAL HISTORY: Long smoking history 50 years pack a day. Occasional alcohol use, otherwise noncontributory. REVIEW OF SYSTEMS: A 12-point review of systems was done, which is negative except for the items as mentioned in history of present illness. OBJECTIVE AND PHYSICAL EXAMINATION: VITAL SIGNS: Temperature 98.2, pulse 90, respirations 20, and blood pressure 149/75 with a pulse ox of 95%. HEENT: Unremarkable. NECK: Supple. HEART: Regular rate. LUNGS: Clear. ABDOMEN: Obese, soft, and nontender. EXTREMITIES: With a compression stocking on the left lower extremity with +1 edema persisting there with minimal tenderness to general palpation. SKIN: Otherwise warm, dry, and clear. NEUROLOGIC: Awake, alert and oriented. LABORATORY DATA: The patient's labs were done yesterday to include white blood cell count of 8.7, hemoglobin of 12.3, hematocrit of 37.7, and platelet count of 321,000 with chem metabolic panel done yesterday within normal range. Her today's non-fasting glucose is 225. Her PTT was 64 earlier today with an INR of 1.04. ASSESSMENT: New pulmonary embolism, deep venous thrombosis, insulin-dependent diabetes, obesity, hypertension, deconditioning, gait disturbance, gastroesophageal reflux disease, questionable hypercoagulable state, smoker, and degenerative joint disease of the knees. PLAN: The patient is to continue reconditioning on TCU. Continue with her IV heparin with consideration of transition to oral anticoagulation as per Dr. Taylor and Dr. João Moore with consideration for possible catheter-directed thrombolysis should be indicated in the near future. Prognosis for this patient is guarded. Frankie Shannon MD
[2017-03-27] MEDS: Pantoprazole 20 mg EC Tab PO SCH (05:27)
[2017-03-27] MEDS: INSULIN LISPRO 50 UNIT SQ SCH (06:59)
[2017-03-27 07:21] LABS: BASO # 0.06 K/mm3 (0.0-2.0); BASO % 0.6 % (0.0-3.0); EOS # 0.5 (0.0-0.7); EOS % 4.8 % (1.5-5.0); GRAN # 6.76 (1.4-6.5); GRAN % 65.7 % (50.0-68.0); HEMOGLOBIN 13.2 g/dL (12.0-16.0); LYMPH # 2.3 (1.2-3.4); LYMPH % 22.2 % (22.0-35.0); MEAN CELL VOLUME 94.3 fl (80.0-105.0); MEAN CORPUSCULAR HEMOGLOBIN 30.2 pg (25.0-35.0); MEAN PLATELET VOLUME 10.5 fl (7.0-11.0); MONO # 0.7 (0.1-0.6); MONO % 6.7 % (1.0-6.0); RBC 4.37 10^6/uL (3.5-6.1); RED CELL DISTRIBUTION WIDTH 12.6 % (11.5-14.5); WHITE BLOOD COUNT 10.3 10^3/ul (4.5-11.0)
[2017-03-27] MEDS: Insulin Reg-HIGH-Coverage SC SCH ×4 (07:36→21:52)
[2017-03-27 07:44] LABS: ALB/GLOB RATIO 1.2 (1.1-1.8); ALBUMIN 3.8 g/dL (3.0-4.8); ALT/SGPT 48 U/L (7-56); AST/SGOT 41 U/L (14-36); BLOOD UREA NITROGEN 10 mg/dL (7-21); CALCIUM 9.9 mg/dL (8.4-10.5); GFR AFRICAN-AMERICAN > 60; GFR NON-AFRICAN AMERICAN > 60
--- NOTE | 2017-03-27 08:32 | PN ---
DATE: SUBJECTIVE: The patient has no complaints of any chest pain. No shortness of breath. No headaches. No dizziness. PHYSICAL EXAMINATION: VITAL SIGNS: Temperature is 98.4, pulse of 68, blood pressure is 122/86, respirations 18 . GENERAL: The patient is lying in bed, flat, comfortable. HEENT: No oral lesion. Anicteric sclerae. Moist mucosa. NECK: No JVD, adenopathy, or thyromegaly. CARDIOVASCULAR: S1 and S2, regular. No murmurs, rubs, or gallops. LUNGS: Clear to auscultation bilaterally. No wheeze, rales, or rhonchi. ABDOMEN: Bowel sounds are positive, soft, nontender and nondistended. EXTREMITIES: No cyanosis, clubbing or edema. ASSESSMENT: 1. Pulmonary embolism. 2. Left iliofemoral deep venous thrombosis. 3. Right adrenal adenoma 3.3 cm. 4. Occlusive thrombus in the left external iliac vein. 5. Diabetes type 2 . 6. Obesity with a body mass index of 47. 7. Hypertension. 8. Dyslipidemia. 9. Smoking . PLAN: The patient is currently comfortable. She has stockings on for her legs. The patient is on Ambien for sleep. She is taking aspirin and the patient is going to continue with her anticoagulation with heparin. She is on Lipitor for dyslipidemia. She is on Protonix. She is using Zestril. She is on a heart healthy diet. Rosales Flores MD
--- NOTE | 2017-03-27 09:29 | HP ---
HISTORY OF PRESENT ILLNESS: The patient is a 72 years old who came to emergency room on 03/23/2017 after she was seen by Dr. Almanzar who sent her to a have leg Doppler done. She was found to have extensive DVT extended up to the pelvis so she has transferred to ER for further devaluation. She was admitted for IV anticoagulation. PAST MEDICAL HISTORY: She has significant past medical history of; 1. Morbid obesity. 2. Xis-zxpczps-tgdykhise diabetes. 3. Hypertension. 4. Hyperlipidemia. SURGICAL HISTORY: Significant for cholecystectomy. SOCIAL HISTORY: She is heavy smoker. She has been smoking for almost 50 years and about a pack a day. She drinks socially. Denies drug use. ALLERGIES: SHE IS NOT ALLERGIES TO ANY MEDICATION. HOME MEDICATIONS: She is on Ambien, naproxen, metformin. lovastatin, lisinopril and aspirin. REVIEW OF SYSTEMS: Significant for leg swelling and difficulty walking get short of breath. PHYSICAL EXAMINATION: GENERAL: She is awake, alert, oriented and able to communicate. VITAL SIGNS: She is afebrile, pulse 99, respirations 20 and blood pressure 163/67. LUNGS: Bilateral good airflow. No rhonchi or crackle. HEART: S1 and S2 audible. ABDOMEN: Soft and nontender. No rebound. No guarding. NEUROLOGIC: The patient is awake, alert, able to communicate. LABORATORY DATA: PTT 64. Chemistry reveal blood sugar is 268. ASSESSMENT: 1. Morbid obesity. 2. Left leg iliofemoral deep venous thrombosis. 3. Udv-kvcisbu-bdzccfdjy diabetes. 4. Hypertension. 5. Hyperlipidemia. 6. Pulmonary embolism. PLAN: Currently patient is on heparin, she can be either started on Eliquis or Coumadin, I will leave it to Dr. Chavez to decide depending on how patient is going to be following, if she complaint she might be a good candidate for Eliquis, and if she is complaint could be given Coumadin. We will continue heparin. Saad Novak MD
[2017-03-27] MEDS: Insulin Lispro 1 UNITS/0.01 ML SC SCH ×2 (12:40→17:53)
[2017-03-27] MEDS: Heparin25000 units/250ml 1/2NS 25,000 UNITS/250 ML BAG IV PRN (13:55)
[2017-03-28] MEDS: Heparin25000 units/250ml 1/2NS 25,000 UNITS/250 ML BAG IV PRN (06:32)
[2017-03-28] MEDS: Insulin Lispro 1 UNITS/0.01 ML SC SCH ×3 (06:34→17:27)
[2017-03-28] MEDS: Pantoprazole 20 mg EC Tab PO SCH (06:35)
[2017-03-28] MEDS: Insulin Reg-HIGH-Coverage SC SCH ×4 (06:35→21:42)
[2017-03-28 08:30] LABS: HEMOGLOBIN 13.7 g/dL (12.0-16.0); MEAN CELL VOLUME 93.7 fl (80.0-105.0); MEAN CORPUSCULAR HEMOGLOBIN 30.8 pg (25.0-35.0); MEAN CORPUSCULAR HGB CONC 32.9 g/dl (31.0-37.0); MEAN PLATELET VOLUME 10.7 fl (7.0-11.0); RBC 4.45 10^6/uL (3.5-6.1); RED CELL DISTRIBUTION WIDTH 12.8 % (11.5-14.5); WHITE BLOOD COUNT 10.6 10^3/ul (4.5-11.0)
[2017-03-28 08:33] LABS: ALB/GLOB RATIO 1.2 (1.1-1.8); ALBUMIN 3.8 g/dL (3.0-4.8); ALT/SGPT 56 U/L (7-56); AST/SGOT 37 U/L (14-36); BLOOD UREA NITROGEN 10 mg/dL (7-21); CALCIUM 9.9 mg/dL (8.4-10.5); GFR AFRICAN-AMERICAN > 60; GFR NON-AFRICAN AMERICAN > 60
--- NOTE | 2017-03-28 13:59 | CP.PCM.PN ---
Subjective - Date & Time of Evaluation Date of Evaluation: 03/28/17 Time of Evaluation: 13:55 - Subjective Subjective: Patient seen and examined at bedside. Patient with no acute events overnight. Patient complaining of mild cough, but no trouble breathing. Patient admits to working physical therapy and occupational therapy. Patient with last bowel movement yesterday. Denies chest pain, shortness of breath, nausea, vomiting, diarrhea, fever, chills. Objective - Vital Signs/Intake and Output Vital Signs (last 24 hours): Temp Pulse Resp BP Pulse Ox 98.1 F 80 20 118/74 97 03/28/17 10:58 03/28/17 10:58 03/28/17 10:58 03/28/17 10:58 03/28/17 10:58 Intake and Output: 03/28/17 03/28/17 06:59 18:59 Intake Total 250 150 Balance 250 150 - Medications Medications: Current Medications Acetaminophen (Tylenol 325mg Tab) 650 mg PO Q4H PRN; Protocol PRN Reason: Pain, moderate (4-7) Last Admin: 03/27/17 21:52 Dose: 650 mg Apixaban (Eliquis) 10 mg PO BID [facility] PRN Reason: Protocol Stop: 04/04/17 10:01 Aspirin (Ecotrin) 81 mg PO 0800 [facility] PRN Reason: Protocol Last Admin: 03/28/17 09:09 Dose: 81 mg Atorvastatin Calcium (Lipitor) 40 mg PO DIN [facility] PRN Reason: Protocol Last Admin: 03/27/17 17:55 Dose: 40 mg Insulin Human Lispro (Humalog) 10 units SC AC [facility] Last Admin: 03/28/17 11:53 Dose: 10 units Insulin Human Regular (Humulin R High) 0 units SC ACHS [facility] PRN Reason: Protocol Last Admin: 03/28/17 11:54 Dose: 4 units Lisinopril (Zestril) 2.5 mg PO DAILY [facility] PRN Reason: Protocol Last Admin: 03/28/17 09:09 Dose: 2.5 mg Pantoprazole Sodium (Protonix Ec Tab) 20 mg PO 0600 [facility] Last Admin: 03/28/17 06:35 Dose: 20 mg Zolpidem Tartrate (Ambien) 5 mg PO HS PRN; Protocol PRN Reason: Sleep Last Admin: 01/29/18 21:52 Dose: 5 mg - Labs Labs: 03/28/17 08:00 03/28/17 08:00 PT 12.0 SECONDS (9.4-12.5) 03/26/17 12:23 INR 1.04 (0.93-1.08) 03/26/17 12:23 APTT 93.0 Seconds (25.1-36.5) H 03/28/17 08:00 - Constitutional Appears: Non-toxic, No Acute Distress - Head Exam Head Exam: ATRAUMATIC, NORMAL INSPECTION, NORMOCEPHALIC - ENT Exam ENT Exam: Mucous Membranes Moist - Respiratory Exam Respiratory Exam: Clear to Ausculation Bilateral, NORMAL BREATHING PATTERN. absent: Rales, Rhonchi, Wheezes - Cardiovascular Exam Cardiovascular Exam: RRR, +S1, +S2 - GI/Abdominal Exam GI & Abdominal Exam: Soft, Normal Bowel Sounds. absent: Tenderness - Extremities Exam Extremities Exam: Pedal Edema. absent: Calf Tenderness Additional comments: Left foot with trace edema, in stocking. - Neurological Exam Neurological Exam: Alert, Awake, Oriented x3 - Psychiatric Exam Psychiatric exam: Normal Affect, Normal Mood - Skin Skin Exam: Intact, Normal Color, Warm Assessment and Plan - Assessment and Plan (Free Text) Plan: 72 y/o F with PMH of HTN, HLD, and DM presents with left ileofemoral DVT and right sided PE. Patient received CTA of chest/abdomen/pelvis which showed right pulmonary artery thrombus with iliac vein occlusive thrombus. Patient has been switched from heparin drip to Eliquis. Patient will continue to be monitored and followed by IR for further recommendations in regards to thrombus directed therapy. DVT likely secondary to immobility, hypercoaguable workup negative at this time. Plan discussed with Dr. Iyengar. Puente, PGY-2
[2017-03-29] MEDS: Pantoprazole 20 mg EC Tab PO SCH (05:23)
[2017-03-29] MEDS: Insulin Lispro 1 UNITS/0.01 ML SC SCH ×3 (06:50→17:30)
[2017-03-29] MEDS: Insulin Reg-HIGH-Coverage SC SCH ×4 (06:51→21:35)
--- NOTE | 2017-03-29 09:11 | PN ---
HISTORY OF PRESENT ILLNESS: This is a 72-year-old female who is coming in to the hospital because of DVT that she had in the left leg. She had been seen by Dr. João Moore and also by Dr. Taylor. The patient is currently comfortable. Her heparin has been discontinued and she now is on Eliquis. She did not require any further interventions. She is ambulating better. We have decided about having her go home in 2 days. She says that she should be okay with the physical therapy that she has received. She is currently comfortable. No shortness of breath or chest pain. PHYSICAL EXAMINATION: VITAL SIGNS: Temperature is 98.1, pulse of 91, blood pressure is 130/70, respirations 20. GENERAL: The patient is lying in bed, flat, comfortable. HEENT: No oral lesion. Anicteric sclerae. Moist mucosa. NECK: No JVD, adenopathy, or thyromegaly. CARDIOVASCULAR: S1 and S2, regular. No murmurs, rubs, or gallops. LUNGS: Clear to auscultation bilaterally. No wheeze, rales, or rhonchi. ABDOMEN: Bowel sounds are positive, soft, nontender and nondistended. EXTREMITIES: No cyanosis, clubbing or edema. ASSESSMENT: 1. Pulmonary embolism. 2. Left iliofemoral deep venous thrombosis, on Eliquis. 3. Right adrenal adenoma, 3.3 cm. 4. Occlusive thrombus of the left external iliac vein. 5. Diabetes type 2. 6. Obesity with a body mass index of 47. 7. Hypertension. 8. Dyslipidemia. 9. Smoking. PLAN: The patient is currently on Eliquis. I gave her prescription for Eliquis. The patient is on Lipitor for dyslipidemia. She is going to be on aspirin. She is on Zestril for hypertension. She is on a heart-healthy diet. Condition is stable. Activities increase as tolerated. She is going to follow up with primary care doctor in 1 to 2 weeks, Dr. Almanzar. Rosales Flores MD
[2017-03-29] MEDS: POLYETHYLENE GLYCOL 3350 17 GM/Dose PACKET PO SCH ×2 (10:03→18:00)
--- NOTE | 2017-03-29 11:42 | CP.PCM.PN ---
Subjective - Date & Time of Evaluation Date of Evaluation: 03/29/17 Time of Evaluation: 12:46 - Subjective Subjective: Patient seen and examined at bedside. Patient states she feels well and has been working with physical therapy daily. She admits to improvement in left leg pain. Denies chest pain, shortness of breath, nausea, vomiting, diarrhea, fever , chills. Objective - Vital Signs/Intake and Output Vital Signs (last 24 hours): Temp Pulse Resp BP Pulse Ox 98.1 F 102 H 20 147/82 97 03/28/17 16:30 03/29/17 10:03 03/28/17 16:30 03/29/17 10:03 03/28/17 16:30 Intake and Output: 03/29/17 03/29/17 06:59 18:59 Intake Total 360 Balance 360 - Medications Medications: Current Medications Acetaminophen (Tylenol 325mg Tab) 650 mg PO Q4H PRN; Protocol PRN Reason: Pain, moderate (4-7) Last Admin: 03/28/17 21:34 Dose: 650 mg Apixaban (Eliquis) 10 mg PO BID [facility] PRN Reason: Protocol Stop: 04/04/17 10:01 Last Admin: 03/29/17 10:03 Dose: 10 mg Aspirin (Ecotrin) 81 mg PO 0800 [facility] PRN Reason: Protocol Last Admin: 03/29/17 08:19 Dose: 81 mg Atorvastatin Calcium (Lipitor) 40 mg PO DIN [facility] PRN Reason: Protocol Last Admin: 03/28/17 17:27 Dose: 40 mg Insulin Human Lispro (Humalog) 10 units SC AC [facility] Last Admin: 03/29/17 06:50 Dose: 10 units Insulin Human Regular (Humulin R High) 0 units SC ACHS [facility] PRN Reason: Protocol Last Admin: 03/29/17 06:51 Dose: 7 units Lisinopril (Zestril) 2.5 mg PO DAILY [facility] PRN Reason: Protocol Last Admin: 03/29/17 10:03 Dose: 2.5 mg Pantoprazole Sodium (Protonix Ec Tab) 20 mg PO 0600 [facility] Last Admin: 03/29/17 05:23 Dose: 20 mg Polyethylene Glycol (Miralax) 17 gm PO BID [facility] Last Admin: 03/29/17 10:03 Dose: 17 gm Zolpidem Tartrate (Ambien) 5 mg PO HS PRN; Protocol PRN Reason: Sleep Last Admin: 03/28/17 21:34 Dose: 5 mg - Labs Labs: 03/28/17 08:00 03/28/17 08:00 PT 12.0 SECONDS (9.4-12.5) 03/26/17 12:23 INR 1.04 (0.93-1.08) 03/26/17 12:23 APTT 93.0 Seconds (25.1-36.5) H 03/28/17 08:00 - Constitutional Appears: Non-toxic, No Acute Distress - Head Exam Head Exam: ATRAUMATIC, NORMAL INSPECTION, NORMOCEPHALIC - ENT Exam ENT Exam: Mucous Membranes Moist - Respiratory Exam Respiratory Exam: Clear to Ausculation Bilateral, NORMAL BREATHING PATTERN - Cardiovascular Exam Cardiovascular Exam: RRR, +S1, +S2 - GI/Abdominal Exam GI & Abdominal Exam: Soft, Normal Bowel Sounds. absent: Tenderness - Extremities Exam Extremities Exam: Pedal Edema (Left leg, +1). absent: Calf Tenderness - Neurological Exam Neurological Exam: Alert, Awake, Oriented x3 - Psychiatric Exam Psychiatric exam: Normal Affect, Normal Mood - Skin Skin Exam: Dry, Intact, Warm Assessment and Plan - Assessment and Plan (Free Text) Plan: 72 y/o F with PMH of HTN, HLD, and DM presents with left ileofemoral DVT and right sided PE. Patient received CTA of chest/abdomen/pelvis which showed right pulmonary artery thrombus with iliac vein occlusive thrombus. Patient will continue Eliquis at this time. Patient will continue to be monitored and followed by IR for further recommendations in regards to thrombus directed therapy. DVT likely secondary to immobility, hypercoaguable workup negative at this time. Plan discussed with Dr. Taylor. Cindi, PGY-2
[2017-03-30] MEDS: Insulin Lispro 1 UNITS/0.01 ML SC SCH ×3 (06:46→17:30)
[2017-03-30] MEDS: Insulin Reg-HIGH-Coverage SC SCH ×4 (06:47→22:31)
[2017-03-30] MEDS: Pantoprazole 20 mg EC Tab PO SCH (06:47)
[2017-03-30] MEDS: POLYETHYLENE GLYCOL 3350 17 GM/Dose PACKET PO SCH ×2 (11:00→17:31)
[2017-03-30 16:12] VITALS: O2SAT 95
--- NOTE | 2017-03-30 23:53 | PN ---
DATE: 03/30/2017 This is [facility] [place] visit on TCU. For Dr. Taylor: SUBJECTIVE: Patient is a 72-year-old female, seen sitting up, having her lunch, in no acute distress, still with significant swelling of the lower extremities as the patient is known to have DVT with pulmonary embolism. She is now transitioned from IV heparin to Eliquis 10 mg b.i.d. for 7 days, then eventually 5 mg b.i.d. for now. The patient is requesting a nicotine patch. She is a smoker. She is, otherwise, reporting minimal discomfort to the lower extremity affected, but she does suffer from DJD of the knees. She is participating with TCU protocols. PHYSICAL EXAMINATION: VITAL SIGNS: Temperature 98, pulse 75, respirations 18, blood pressure 111/48, pulse ox 95%. HEENT: Unremarkable. NECK: Supple. HEART: Regular rate. LUNGS: Clear. ABDOMEN: Obese, soft, and nontender. EXTREMITIES: Compression stocking on the left lower extremity with +1 edema persisting with minimal tenderness to gentle palpation. SKIN: Otherwise warm, dry, and clear. NEUROLOGIC: Awake, alert, and oriented x3. LABORATORY DATA: Patient's labs were done. They were done 2 days prior and will be repeated tomorrow. Her non-fasting fingerstick was noted to be 225 with adjustment of her diabetic medication as per Dr. Chavez, her attending physician, with sliding scale insulin to be continued. ASSESSMENT: For this patient is that of new pulmonary embolism, new deep venous thrombosis, diabetes mellitus insulin-dependent, hypertension, obesity, deconditioning, gait disturbance, gastroesophageal reflux disease, questionable hypercoagulable state, smoker, degenerative joint disease of the knees. PLAN: For this patient is to recondition her on TCU. We will check her labs in the morning. We will continue her Eliquis as listed above with a nicotine patch also to help with her smoking cessation to be offered. The patient was seen at the bedside with a comprehensive medically necessary and appropriate visit carried out in excess of 15 minutes [id number] time with the labs to be repeated in the morning as listed above. Prognosis for this patient is guarded. Frankie Shannon MD [facility] # [id number]
[2017-03-31] MEDS: Pantoprazole 20 mg EC Tab PO SCH (05:30)
[2017-03-31] MEDS: Insulin Lispro 1 UNITS/0.01 ML SC SCH (06:50)
[2017-03-31] MEDS: Insulin Reg-HIGH-Coverage SC SCH (06:51)
[2017-03-31 07:15] LABS: BASO # 0.05 K/mm3 (0.0-2.0); BASO % 0.5 % (0.0-3.0); EOS # 0.4 (0.0-0.7); EOS % 3.7 % (1.5-5.0); GRAN # 6.37 (1.4-6.5); HEMOGLOBIN 13.2 g/dL (12.0-16.0); LYMPH # 2.3 (1.2-3.4); LYMPH % 23.1 % (22.0-35.0); MEAN CELL VOLUME 93.3 fl (80.0-105.0); MEAN CORPUSCULAR HEMOGLOBIN 30.3 pg (25.0-35.0); MEAN CORPUSCULAR HGB CONC 32.4 g/dl (31.0-37.0); MONO # 0.8 (0.1-0.6); MONO % 7.7 % (1.0-6.0); RBC 4.36 10^6/uL (3.5-6.1); RED CELL DISTRIBUTION WIDTH 12.9 % (11.5-14.5); WHITE BLOOD COUNT 9.8 10^3/ul (4.5-11.0)
[2017-03-31 07:44] LABS: BLOOD UREA NITROGEN 14 mg/dL (7-21); GFR AFRICAN-AMERICAN > 60; GFR NON-AFRICAN AMERICAN > 60
[2017-03-31 07:45] LABS: ALB/GLOB RATIO 1.1 (1.1-1.8); ALBUMIN 3.5 g/dL (3.0-4.8); ALT/SGPT 36 U/L (7-56); AST/SGOT 20 U/L (14-36); CALCIUM 9.7 mg/dL (8.4-10.5)
[2017-03-31] MEDS: POLYETHYLENE GLYCOL 3350 17 GM/Dose PACKET PO SCH (10:03)
[2017-03-31 10:05] VITALS: BP 136/95; PULSE 100
--- NOTE | 2017-03-31 13:59 | CP.PCM.PN ---
Subjective - Date & Time of Evaluation Date of Evaluation: 03/31/17 Time of Evaluation: 13:55 - Subjective Subjective: Patient seen and examined at bedside. Patient continues to work with physical therapy. Patient wearing her leg stocking. Last bowel movement this morning. Denies chest pain, shortness of breath, nausea, vomiting, diarrhea, fever, chills. Objective - Vital Signs/Intake and Output Vital Signs (last 24 hours): Temp Pulse Resp BP Pulse Ox 98 F 100 H 18 136/95 H 95 03/30/17 16:12 03/31/17 10:01 03/30/17 16:12 03/31/17 10:01 03/30/17 16:12 Intake and Output: 03/31/17 03/31/17 06:59 18:59 Intake Total 420 Output Total 600 Balance -180 - Labs Labs: 03/31/17 06:45 03/31/17 06:45 PT 12.0 SECONDS (9.4-12.5) 03/26/17 12:23 INR 1.04 (0.93-1.08) 03/26/17 12:23 APTT 93.0 Seconds (25.1-36.5) H 03/28/17 08:00 - Constitutional Appears: Non-toxic, No Acute Distress - Head Exam Head Exam: ATRAUMATIC, NORMAL INSPECTION, NORMOCEPHALIC - ENT Exam ENT Exam: Mucous Membranes Moist - Respiratory Exam Respiratory Exam: Clear to Ausculation Bilateral, NORMAL BREATHING PATTERN - Cardiovascular Exam Cardiovascular Exam: RRR, +S1, +S2 - GI/Abdominal Exam GI & Abdominal Exam: Soft, Normal Bowel Sounds. absent: Tenderness - Extremities Exam Extremities Exam: Pedal Edema. absent: Calf Tenderness - Neurological Exam Neurological Exam: Alert, Awake, Oriented x3 - Psychiatric Exam Psychiatric exam: Normal Affect, Normal Mood - Skin Skin Exam: Intact, Normal Color, Warm Assessment and Plan - Assessment and Plan (Free Text) Plan: 72 y/o F with PMH of HTN, HLD, and DM presents with left ileofemoral DVT and right sided PE. Patient received CTA of chest/abdomen/pelvis which showed right pulmonary artery thrombus with iliac vein occlusive thrombus. Patient will continue Eliquis at this time. Will continue 10 mg dosage of Eliquis BID for 3 more days, then switch to 5 mg BID thereafter. Patient will follow up with PMD upon discharge. DVT likely secondary to immobility, hypercoaguable workup negative at this time. Plan discussed with Dr. Taylor. Cindi, PGY-2
[2017-03-31 14:28] VITALS: RESP 20; TEMP 97.5
--- NOTE | 2017-04-01 03:35 | DS ---
HISTORY OF PRESENT ILLNESS: This is a 72-year-old female who had come in to the hospital and had a large left leg DVT. The patient was treated with anticoagulation, initially with heparin and then with Eliquis. She was seen by multiple consultants, and no further intervention is required. She has no complaint of any headaches or dizziness. No nausea. No vomiting. PHYSICAL EXAMINATION: VITAL SIGNS: Temperature is 98, pulse is 95, blood pressure 111/48, respiration is 18, O2 saturation 95%. GENERAL: The patient is lying in bed, flat, comfortable. HEENT: No oral lesion. Anicteric sclerae. Moist mucosa. NECK: No JVD, adenopathy, or thyromegaly. CARDIOVASCULAR: S1 and S2, regular. No murmurs, rubs, or gallops. LUNGS: Clear to auscultation bilaterally. No wheeze, rales, or rhonchi. ABDOMEN: Bowel sounds are positive, soft, nontender and nondistended. EXTREMITIES: No cyanosis, clubbing. Left leg has trace edema. ASSESSMENT: 1. Pulmonary embolism. 2. Left iliofemoral deep venous thrombosis, on Eliquis. 3. Right adrenal adenoma, 3.3 cm. 4. Occlusive thrombus of the left external iliac vein. 5. Diabetes type 2. 6. Obesity with a body mass index of 47. 7. Hypertension. 8. Dyslipidemia. 9. Smoking. PLAN: The patient is currently comfortable. She is currently on her Eliquis 10 mg twice a day. She is on Lipitor for dyslipidemia. She is on MiraLax for her constipation. The patient is on Tylenol. She is going to continue with lisinopril. Condition is stable. Activities, increase as tolerated. Follow up with Dr. Almanzar in one to two weeks. Rosales Flores MD
== END 2017-03-31 12:13 | disposition home or self-care (01) | DRG 299 ==
LOC: TRCU 16:37
PROVIDERS: ADMIT Internal Medicine Nephrology; ATTEND Internal Medicine Nephrology
PROC: F07Z9FZ Gait Training/Functional Ambulation Treatment using Assistive, Adaptive, Supportive or Protective Equipment (ICD-10-PCS; principal; 2017-03-26)
PROC: F07M6ZZ Therapeutic Exercise Treatment of Musculoskeletal System - Whole Body (ICD-10-PCS; 2017-03-26)
PROC: F08Z0ZZ Bathing/Showering Techniques Treatment (ICD-10-PCS; 2017-03-27)
PROC: F08Z1ZZ Dressing Techniques Treatment (ICD-10-PCS; 2017-03-27)
PROC: F08Z2ZZ Grooming/Personal Hygiene Treatment (ICD-10-PCS; 2017-03-27)
PROC: F08Z4ZZ Home Management Treatment (ICD-10-PCS; 2017-03-27)
DX: I82.422 Acute embolism and thrombosis of left iliac vein (principal); I26.99 Other pulmonary embolism without acute cor pulmonale; Z68.42 Body mass index [BMI] 45.0-49.9, adult; E11.9 Type 2 diabetes mellitus without complications; E66.01 Morbid (severe) obesity due to excess calories; D35.01 Benign neoplasm of right adrenal gland; E78.5 Hyperlipidemia, unspecified; F17.210 Nicotine dependence, cigarettes, uncomplicated; I10 Essential (primary) hypertension; K21.9 Gastro-esophageal reflux disease without esophagitis; M17.0 Bilateral primary osteoarthritis of knee; Z79.01 Long term (current) use of anticoagulants; Z79.4 Long term (current) use of insulin; K59.00 Constipation, unspecified

== ENCOUNTER 2018-03-05 13:19 | Outpatient (CLI) | payer MEDICARE, OTHER | END 2018-03-05 13:20 | disposition home or self-care (01) | LOC: RAD 13:19 ==